=== PATIENT | female | born 1935 | race Caucasian/White ===

== ENCOUNTER 2017-03-26 10:59 | Emergency (ER) | payer OTHER, BC ==
[2017-03-26 11:02] VITALS: BMI 26.5
[2017-03-26] MEDS ORDERED: SODIUM CHLORIDE 0.9% 1000 ML INFUS.BAG IV STA (11:04)
--- NOTE | 2017-03-26 11:04 | PDOC ---
History of Present Illness - General Chief Complaint: Pain, Acute Stated Complaint: CLOGGED COLOSTOMY WITH ABDOMINAL PAIN Time Seen by Provider: 03/26/17 11:03 History Source: Patient Exam Limitations: No Limitations - History of Present Illness Initial Comments: 03/26/17 12:01 81 yo female with history of colorectal cancer had colostomy 12 years ago at [facility]. She no longer has a surgeon but goes once a year to [facility] for Oncology FU. Never had a problem but last month the colostomy stopped working for a day and then began functioning again. It has not worked for the past two and a half days. She had intense pain but now the pain is gone. She presents Tachycardic, and Hypotensive. Colostomy is dry and the stoma is pale. The abdomen is rock hard and there is what feels like a hard mass or possibly stool in the LLQ around the ostomy site. I initiated a full septic work up and started Zosyn and Flagyl. I believe she has a small bowel obstruction as well. I paged Dr Trejo for surgical consultation and guidance. CT abd and pelvis ordered. Timing/Duration: other (2-3 days) Severity: severe Modifying Factors: improves with: other (Nothing makes it worse or better) Past History - Past Medical History Allergies/Adverse Reactions: Allergies Allergy/AdvReac Type Severity Reaction Status Date / Time No Known Allergies Allergy Verified 03/26/17 11:30 Home Medications: Ambulatory Orders Carbidopa/Levodopa *Cr* 25/100 [Sinemet *Cr* 25/100 -] 1 combo PO QID 03/26/17 Carbidopa/Levodopa 10/100 [Sinemet 10/100 -] 1 each PO TID 03/26/17 Furosemide [Lasix] 20 mg PO ASDIR 03/26/17 Hydrochlorothiazide [Hctz -] 25 mg PO DAILY 03/26/17 Pramipexole Di-HCl [Mirapex] 0.5 mg PO TID 03/26/17 Valsartan [Diovan] 160 mg PO DAILY 03/26/17 HTN: Yes Other medical history: Parkinsons disease, Colorectal Cancer, Colostomy for past 12 years - Psycho/Social/Smoking Cessation Hx Suicidal Ideation: No Smoking History: Never smoked Hx Alcohol Use: No Drug/Substance Use Hx: No Review of Systems - Review of Systems Able to Perform ROS?: Yes Is the patient limited Turkish proficient: No Constitutional: No: Symptoms Reported HEENTM: No: Symptoms Reported Respiratory: No: Symptoms reported Cardiac (ROS): No: Symptoms Reported ABD/GI: Yes: See HPI : No: Symptoms Reported Musculoskeletal: No: Symptoms Reported Integumentary: No: Symptoms Reported Neurological: No: Symptoms reported Psychiatric: No: Anxiety, Depression, Emotional Problems Endocrine: No: Symptoms Reported Hematologic/Lymphatic: No: Symptoms Reported All Other Systems: Reviewed and Negative *Physical Exam - Vital Signs Last Vital Signs Temp Pulse Resp BP Pulse Ox 97.9 F 115 H 20 78/49 95 03/26/17 11:00 03/26/17 11:00 03/26/17 11:00 03/26/17 11:00 03/26/17 11:00 - Physical Exam Comments: 03/26/17 12:09 Hypotensive and Tachacardic, Fingertips with delayed capillary refill and dusky nail beds General Appearance: Yes: Other (Awake Alert and Oriented, No Complaints of Pain , Abdomen Distended and Ostomy not functiong and stoma is pale and dry) HEENT: positive: EOMI, STEVE, Normal ENT Inspection Neck: positive: Trachea midline, Normal Thyroid, Supple. negative: Tender Respiratory/Chest: positive: Lungs Clear, Normal Breath Sounds. negative: Chest Tender, Respiratory Distress Cardiovascular: positive: Regular Rhythm, Regular Rate. negative: Murmur Gastrointestinal/Abdominal: positive: Distended, Other (HIgh Pitched Bowel Sounds.... Tympanitic, Mass in LLQ feels rock hard) ED Treatment Course - LABORATORY CBC & Chemistry Diagram: 03/26/17 11:10 03/26/17 11:21 *DC/Admit/Observation/Transfer Diagnosis at time of Disposition: Perforation of intestine, Incarcerated hernia, Small bowel obstruction, Calculus of common bile duct with acute cholecystitis Sepsis Qualifiers: Sepsis type: sepsis due to unspecified organism Qualified Code(s): A41.9 - Sepsis, unspecified organism - Discharge Dispostion Condition at time of disposition: Guarded - Referrals Referrals: Kayli Pimentel MD [Primary Care Provider] - - Transfer to Acute Care Facility Receiving Facility: [facility]. Accepting Physician:: Dr Soliman General Surgery to the ED, Critical Care Transport
[2017-03-26] MEDS ORDERED: ONDANSETRON 4 MG/2 ML VIAL IVPUSH ONE (11:05)
[2017-03-26] MEDS ORDERED: ONDANSETRON 4 MG/2 ML VIAL IVPB ONE (11:23)
[2017-03-26] MEDS ORDERED: PIPERACILLIN/TAZOB 3.375 GM/50 ML PRE-DOCKED IV ONE (11:33)
[2017-03-26] MEDS ORDERED: PIPERACILLIN/TAZOBACTAM 3.375 GM VIAL IVPB ONE (11:52)
[2017-03-26 12:01] LABS: ALBUMIN 3.8 g/dl (3.5-5.0); ALK PHOS 42 U/L (32-92); ANION GAP 20 (8-16); BILIRUBIN,TOTAL 2.3 mg/dl (0.2-1.0); BLOOD UREA NITROGEN 40 mg/dl (7-18); CALCIUM 9.9 mg/dl (8.4-10.2); CHLORIDE 100 mmol/L (98-107); CO2 16 mmol/L (22-28); CREATININE 1.4 mg/dl (0.6-1.3); GLUCOSE,RANDOM 276 mg/dl (74-106); POTASSIUM 3.4 mmol/L (3.5-5.1); SGOT/AST 46 U/L (10-42); SODIUM 136 mmol/L (136-145); TOT PROT 6.4 g/dl (6.4-8.3)
[2017-03-26 12:07] LABS: INR 1.14 (0.82-1.09); PROTHROMBIN TIME (PATIENT) 12.7 SEC (10.2-13.0)
[2017-03-26 12:15] LABS: ACTIVATED PTT 27.1 SECONDS (24.0-38.9)
[2017-03-26 12:31] LABS: HEMATOCRIT 42.4 % (32.4-45.2); HEMOGLOBIN 14.3 GM/dl (10.7-15.3); MCH 29.7 pg (25.7-33.7); MCHC 33.8 g/dl (32.0-36.0); MEAN CELL VOLUME 87.9 fl (80-96); MEAN PLT VOLUME 9.2 fl (7.5-11.1); PLATELET COUNT 174 K/MM3 (134-434); RBC 4.83 M/mm3 (3.60-5.2); RDW 13.5 % (11.6-15.6); WHITE BLOOD COUNT 5.4 K/mm3 (4.0-10.8)
[2017-03-26 13:01] LABS: VENOUS PH 7.38 (7.32-7.42); VENOUS PO2 32.9 mmHg (28-48)
[2017-03-26 13:02] LABS: VENOUS PC02 29.5 mmHg (38-52)
[2017-03-26 13:20] LABS: TROPONIN I (DFP) 2.2 ng/ml (0.03-0.50)
[2017-03-26] MEDS ORDERED: ACETAMINOPHEN 1000 MG/100 ML VIAL (NON FORMULARY) IVPB ONE (14:50)
[2017-03-26 15:09] VITALS: TEMP 98.1
[2017-03-26] MEDS ORDERED: ACETAMINOPHEN INJECTION 100 ML IVPB ONE (15:11)
[2017-03-26 15:48] VITALS: BP 111/60; PULSE 90
--- NOTE | 2017-03-26 18:21 | EKG ---
Test Reason : Blood Pressure : / mmHG Vent. Rate : 109 BPM Atrial Rate : 109 BPM P-R Int : 132 ms QRS Dur : 066 ms QT Int : 388 ms P-R-T Axes : 048 -54 011 degrees QTc Int : 522 ms POOR DATA QUALITY, INTERPRETATION MAY BE ADVERSELY AFFECTED SINUS TACHYCARDIA LEFT AXIS DEVIATION INFERIOR-POSTERIOR INFARCT (CITED ON OR BEFORE 20-FEB-2004) PROLONGED QT WHEN COMPARED WITH ECG OF 20-FEB-2004 09:28, VENT. RATE HAS INCREASED BY [address] NOW DEPRESSED IN ANTEROLATERAL LEADS QT HAS LENGTHENED Confirmed by MD CHACHO, NARINDER ([id number]) on 03/26/2017 6:21:13 PM Referred By: SPARKLE REESE Confirmed By:NARINDER FLOR MD
[2017-03-26 22:05] LABS: PLATELET ESTIMATE ADEQUATE (NORMAL)
== END 2017-03-26 15:59 | disposition short-term general hospital (02) ==
LOC: FER 10:59
PROC: 3E03329 Introduction of Other Anti-infective into Peripheral Vein, Percutaneous Approach (ICD-10-PCS; principal; 2017-03-26)
PROC: 3E033NZ Introduction of Analgesics, Hypnotics, Sedatives into Peripheral Vein, Percutaneous Approach (ICD-10-PCS; 2017-03-26)
PROC: 3E033GC Introduction of Other Therapeutic Substance into Peripheral Vein, Percutaneous Approach (ICD-10-PCS; 2017-03-26)
PROC: 3E0337Z Introduction of Electrolytic and Water Balance Substance into Peripheral Vein, Percutaneous Approach (ICD-10-PCS; 2017-03-26)
DX: A41.9 Sepsis, unspecified organism (principal); K56.60 Unspecified intestinal obstruction; K63.1 Perforation of intestine (nontraumatic); Z85.038 Personal history of other malignant neoplasm of large intestine; I10 Essential (primary) hypertension; G20 Parkinson's disease
CPT/HCPCS: 36415; 71010-TC; 74177-TC; 80053; 82803; 83605; 84484; 85025; 85610; 85730; 86850; 86900; 86901; 87040; 93005; 96365; 96375; 99285-25; J0131; J7030